=== PATIENT | female | born 1985 | race Native Hawaiian/Other Pacific Islander ===

== ENCOUNTER 2017-07-28 13:19 | Emergency (ER) | payer OTHER ==
[2017-07-28] MEDS ORDERED: ACETAMINOPHEN TAB 500 MG TAB PO STA (14:37)
[2017-07-28] MEDS ORDERED: IBUPROFEN 800 MG TAB PO STA (14:37)
--- NOTE | 2017-07-28 14:42 | ED ---
General Adult HPI - General Chief complaint: Abdominal Pain Stated complaint: Urogenital Time Seen by Provider: 07/28/17 14:17 Source: patient Mode of arrival: ambulatory Limitations: no limitations - History of Present Illness Initial comments: patient is a 32-year-old female who presents with a chief complaint of back/ flank pain that has been going on for about a month but has been acutely worse since yesterday. The patient is concerned that she has a urinary tract infection or an infection in her kidney. The patient states that she look up her symptoms are [employer]. Patient characterizes her pain as a deep ache. Aggravating factors include bending, standing up straight, and twisting. The patient also admits to having a cough which exacerbates her pain. Alleviating factors are rest. Timing is been constant. Patient is a half-pack a day smoker , she does not drink or use recreational drugs. She does not have any medical ALLERGIES. - Related Data Previous Rx's Medication Instructions Recorded Methocarbamol [Robaxin-750] 750 mg PO TID BETWEEN MEALS PRN 07/28/17 #12 tablet Sulfamethox-Tmp 800-160Mg [Bactrim 1 tab PO Q12HR #14 tab 07/28/17 DS 800-160 mg] Allergies Allergy/AdvReac Type Severity Reaction Status Date / Time No Known Allergies Allergy Verified 07/28/17 14:19 Review of Systems ROS Statement: Those systems with pertinent positive or pertinent negative responses have been documented in the HPI. ROS Other: All systems not noted in ROS Statement are negative. Respiratory: Reports: cough Genitourinary: Reports: frequency Past Medical History Past Medical History: No Reported History Additional Past Medical History / Comment(s): Obstetric history: This is her first and she has been getting care with Dr Swain. A+, abs neg, Rub nonimmune, RPR NR, Hep B neg, HIV NR, toxo neg. normal 1hr GTT and anatomy US. GBS unknown because she did not come to her last visit. History of Any Multi-Drug Resistant Organisms: None Reported Past Surgical History: Ear Surgery Additional Past Surgical History / Comment(s): myringotomy with tubes Past Anesthesia/Blood Transfusion Reactions: No Reported Reaction Past Psychological History: No Psychological Hx Reported Smoking Status: Current every day smoker Past Alcohol Use History: None Reported Past Drug Use History: None Reported General Exam Limitations: no limitations General appearance: alert, in no apparent distress Head exam: Present: atraumatic, normocephalic Eye exam: Present: normal appearance ENT exam: Present: normal exam Respiratory exam: Present: normal lung sounds bilaterally. Absent: respiratory distress, wheezes Cardiovascular Exam: Present: regular rate, normal rhythm GI/Abdominal exam: Present: soft. Absent: distended, tenderness Rectal exam: Present: deferred Extremities exam: Present: normal inspection Back exam: Present: tenderness (patient has tenderness on the right lower side of her back. There is some pain extending to the lateral side of her mid section), muscle spasm. Absent: full ROM (patient has decreased range of motion in her lumbar spine. The patient has difficulty standing straight and bending over.) Neurological exam: Present: alert, oriented X3 Psychiatric exam: Present: normal affect, normal mood Skin exam: Present: warm, dry, intact Course Vital Signs 07/28/17 14:05 Temperature 99.4 F Pulse Rate 72 Respiratory 20 Rate Blood Pressure 109/63 O2 Sat by Pulse 99 Oximetry Medical Decision Making - Medical Decision Making patient presents with a chief complaint of lower back pain. On initial evaluation, vital signs are stable, the patient is in no acute distress. History and physical examination most consistent with a lower back strain however we'll send urinalysis to rule out urinary tract infection versus pyelonephritis. We will send a urine hCG to rule out . 3:45 PM Lab evaluation this patient shows evidence of a urinary tract infection. The patient will be treated with Bactrim, urine culture was sent. Patient will also be given a prescription for Robaxin as I do believe there is a component of muscular skeletal pain at the patient's presentation today. I discussed the results and care plan with the patient, she is agreeable. She is instructed to follow up with her primary care doctor or return to the emergency department if her symptoms worsen or change. - Lab Data Lab Results 07/28/17 07/28/17 Range/Units 15:00 15:00 Urine Color Yellow Urine Appearance Cloudy H (Clear) Urine pH 6.5 (5.0-8.0) Ur Specific [place] 1.012 (1.001-1.035) Urine Protein 1+ H (Negative) Urine Glucose (UA) Negative (Negative) Urine Ketones 1+ H (Negative) Urine Blood Moderate H (Negative) Urine Nitrite Positive H (Negative) Urine Bilirubin Negative (Negative) Urine Urobilinogen <2.0 (<2.0) mg/dL Ur Leukocyte Esterase Large H (Negative) Urine RBC 5 (0-5) /hpf Urine WBC 110 H (0-5) /hpf Ur Squamous Epith Cells 7 H (0-4) /hpf Urine Bacteria Many H (None) /hpf Urine Mucus Many H (None) /hpf Urine HCG, Qual Not Detected (Not Detectd) Disposition Clinical Impression: UTI (urinary tract infection), Lower back pain Disposition: HOME SELF-CARE Condition: Good Instructions: Urinary Tract Infection in Women (ED) Prescriptions: Methocarbamol [Robaxin-750] 750 mg PO TID BETWEEN MEALS PRN #12 tablet PRN Reason: muscle spasm Sulfamethox-Tmp 800-160Mg [Bactrim DS 800-160 mg] 1 tab PO Q12HR #14 tab Referrals: None,Stated [Primary Care Provider] - 1-2 days Ambar Allison MD [STAFF PHYSICIAN] - 1-2 days
[2017-07-28 15:11] LABS: Appearance,Urine Cloudy (Clear); Bacteria,Urine Many /hpf; Bilirubin,Urine Negative (Negative); Blood,Urine Moderate (Negative); Color,Urine Yellow; Glucose,Urine (UA) Negative (Negative); Ketones,Urine 1+ (Negative); Leukocyte Esterase,Urine Large (Negative); Mucus,Urine Many /hpf; Nitrite,Urine Positive (Negative); PH, Urine 6.5 (5.0-8.0); Protein,Urine 1+ (Negative); RBC,Urine 5 /hpf (0-5); Specific Gravity,Urine 1.012 (1.001-1.035); Squamous Epithelial Cell,Urine 7 /hpf (0-4); Urobilinogen,Urine <2.0 mg/dL (<2.0); WBC,Urine 110 /hpf (0-5)
[2017-07-28 15:55] VITALS: BP 118/73; PULSE 61; RESP 16; TEMP 98
== END 2017-07-28 15:54 | disposition home or self-care (01) ==
LOC: EC 13:19
DX: N39.0 Urinary tract infection, site not specified (principal); M54.5 Low back pain; R05 Cough; F17.200 Nicotine dependence, unspecified, uncomplicated
CPT/HCPCS: 81001; 81025; 99284

== ENCOUNTER 2021-04-18 10:09 | Inpatient (IN) | payer OTHER ==
[2021-04-18] MEDS ORDERED: SODIUM CHLORIDE 0.9% 500 ML 500 ML IV STA (10:25)
[2021-04-18] MEDS ORDERED: ALBUTEROL HFA INHALER INHALATION STA (10:25)
[2021-04-18] MEDS ORDERED: ACETAMINOPHEN TAB 500 MG TAB PO STA (10:26)
[2021-04-18] MEDS ORDERED: SODIUM CHLORIDE 0.9% 500 ML 500 ML IV ONE (10:26)
--- NOTE | 2021-04-18 10:31 | ED ---
General Adult HPI - General Chief complaint: Shortness of Breath Stated complaint: 7 1/2mos preg, SOB Time Seen by Provider: 04/18/21 10:17 Source: patient, RN notes reviewed, old records reviewed Mode of arrival: ambulatory Limitations: physical limitation - History of Present Illness Initial comments: 35-year-old female G 2P1 approximate 30 weeks presenting with chief complaint of cough, congestion, dyspnea. Her cough is productive of yellow sputum. She's had chills. No myalgias. No abdominal pain. No vaginal bleeding or discharge. She has been sick for the past 5 days. No known contacts with coronal virus. She has not been vaccinated. She's had nasal congestion as well. She also notes that over the past 24-48 hours she's had decreased movements. Patient is a current smoker. No history of asthma. - Related Data Home Medications Medication Instructions Recorded Confirmed guaiFENesin SYRUP 100MG/5ML 200 mg PO Q6H PRN 04/18/21 04/18/21 [Robitussin] Allergies Allergy/AdvReac Type Severity Reaction Status Date / Time No Known Allergies Allergy Verified 04/18/21 11:12 Review of Systems ROS Statement: Those systems with pertinent positive or pertinent negative responses have been documented in the HPI. ROS Other: All systems not noted in ROS Statement are negative. Past Medical History Past Medical History: No Reported History Additional Past Medical History / Comment(s): Obstetric history: This is her first and she has been getting care with Dr Swain. A+, abs neg, Rub nonimmune, RPR NR, Hep B neg, HIV NR, toxo neg. normal 1hr GTT and anatomy US. GBS unknown because she did not come to her last visit. History of Any Multi-Drug Resistant Organisms: None Reported Past Surgical History: Ear Surgery Additional Past Surgical History / Comment(s): myringotomy with tubes Past Anesthesia/Blood Transfusion Reactions: No Reported Reaction Past Psychological History: No Psychological Hx Reported Smoking Status: Current every day smoker Past Alcohol Use History: None Reported Past Drug Use History: None Reported General Exam Limitations: physical limitation General appearance: alert, anxious Head exam: Present: atraumatic, normocephalic Eye exam: Present: normal appearance, PERRL ENT exam: Present: mucous membranes dry Neck exam: Present: normal inspection. Absent: tenderness, meningismus Respiratory exam: Present: respiratory distress, wheezes, rhonchi Cardiovascular Exam: Present: normal rhythm, tachycardia GI/Abdominal exam: Present: soft, other (Gravid). Absent: distended, tenderness, guarding, rebound Extremities exam: Present: normal inspection, normal capillary refill. Absent: pedal edema, calf tenderness Neurological exam: Present: alert, oriented X3 Psychiatric exam: Present: anxious Skin exam: Present: warm, dry, intact. Absent: cyanosis, diaphoretic Course Vital Signs 04/18/21 04/18/21 10:12 12:05 Temperature 98.5 F Pulse Rate 127 H 110 H Respiratory 26 H 24 Rate Blood Pressure 138/82 128/98 O2 Sat by Pulse 96 97 Oximetry EKG Findings - EKG Comments: EKG Findings:: Sinus tachycardia, rate of 113, ME interval 128, QRS duration 78, QTC [address] segment elevation. Medical Decision Making - Medical Decision Making 35-year-old female currently 30 weeks presenting with cough, URI symptoms. Cough is productive of yellow sputum. She is wheezing bilaterally. She has an elevated white blood cell count suggestive of bacterial infection. Chest x-ray showing COPD, bronchitis type pattern without large focal pneumonia. Her coronavirus testing is negative. She is started on IV antibiotics, st eroids, albuterol, Atrovent. She will be admitted to internal medicine with obstetric on consult. She did have normal heart tones while in the emergency department. I discussed case with Dr. Crews who will admit. - Lab Data Result diagrams: 04/18/21 10:58 04/18/21 10:58 Lab Results 04/18/21 04/18/21 04/18/21 Range/Units 10:58 10:58 10:58 WBC 23.9 H (3.8-10.6) k/uL RBC 3.86 (3.80-5.40) m/uL Hgb 12.9 (11.4-16.0) gm/dL Hct 38.3 (34.0-46.0) % MCV 99.2 (80.0-100.0) fL MCH 33.4 (25.0-35.0) pg MCHC 33.7 (31.0-37.0) g/dL RDW 13.8 (11.5-15.5) % Plt Count 302 (150-450) k/uL MPV 10.3 Neutrophils % 88 % Lymphocytes % 6 % Monocytes % 4 % Eosinophils % 0 % Basophils % 0 % Neutrophils # 21.0 H (1.3-7.7) k/uL Lymphocytes # 1.4 (1.0-4.8) k/uL Monocytes # 0.9 (0-1.0) k/uL Eosinophils # 0.1 (0-0.7) k/uL Basophils # 0.1 (0-0.2) k/uL PT 9.4 (9.0-12.0) sec INR 0.8 (<1.2) APTT 25.0 (22.0-30.0) sec Sodium 132 L (137-145) mmol/L Potassium 4.5 (3.5-5.1) mmol/L Chloride 107 (98-107) mmol/L Carbon Dioxide 10 L (22-30) mmol/L Anion Gap 15 mmol/L BUN 5 L (7-17) mg/dL Creatinine 0.56 (0.52-1.04) mg/dL Est GFR (CKD-EPI)AfAm >90 (>60 ml/min/1.73 sqM) Est GFR (CKD-EPI)NonAf >90 (>60 ml/min/1.73 sqM) Glucose 95 (74-99) mg/dL Plasma Lactic Acid Rehan (0.7-2.0) mmol/L Calcium 9.8 (8.4-10.2) mg/dL Magnesium 1.7 (1.6-2.3) mg/dL Total Bilirubin 1.0 (0.2-1.3) mg/dL AST 42 H (14-36) U/L ALT 20 (4-34) U/L Alkaline Phosphatase 169 H (38-126) U/L Total Protein 7.5 (6.3-8.2) g/dL Albumin 4.1 (3.5-5.0) g/dL Coronavirus (PCR) (Not Detectd) 04/18/21 04/18/21 Range/Units 10:58 11:13 WBC (3.8-10.6) k/uL RBC (3.80-5.40) m/uL Hgb (11.4-16.0) gm/dL Hct (34.0-46.0) % MCV (80.0-100.0) fL MCH (25.0-35.0) pg MCHC (31.0-37.0) g/dL RDW (11.5-15.5) % Plt Count (150-450) k/uL MPV Neutrophils % % Lymphocytes % % Monocytes % % Eosinophils % % Basophils % % Neutrophils # (1.3-7.7) k/uL Lymphocytes # (1.0-4.8) k/uL Monocytes # (0-1.0) k/uL Eosinophils # (0-0.7) k/uL Basophils # (0-0.2) k/uL PT (9.0-12.0) sec INR (<1.2) APTT (22.0-30.0) sec Sodium (137-145) mmol/L Potassium (3.5-5.1) mmol/L Chloride (98-107) mmol/L Carbon Dioxide (22-30) mmol/L Anion Gap mmol/L BUN (7-17) mg/dL Creatinine (0.52-1.04) mg/dL Est GFR (CKD-EPI)AfAm (>60 ml/min/1.73 sqM) Est GFR (CKD-EPI)NonAf (>60 ml/min/1.73 sqM) Glucose (74-99) mg/dL Plasma Lactic Acid Rehan 0.9 (0.7-2.0) mmol/L Calcium (8.4-10.2) mg/dL Magnesium (1.6-2.3) mg/dL Total Bilirubin (0.2-1.3) mg/dL AST (14-36) U/L ALT (4-34) U/L Alkaline Phosphatase (38-126) U/L Total Protein (6.3-8.2) g/dL Albumin (3.5-5.0) g/dL Coronavirus (PCR) Not Detected (Not Detectd) Disposition Clinical Impression: Community acquired pneumonia, Reactive airway disease Disposition: ADMITTED IP TO THIS [facility] Condition: Stable Is patient prescribed a controlled substance at d/c from ED?: No Referrals: None,Stated [Primary Care Provider] - 1-2 days Decision to Admit Reason: Admit from EC Decision Date: 04/18/21 Decision Time: 13:07
[2021-04-18 11:27] LABS: Basophils # (A) 0.1 k/uL (0-0.2); Basophils % (A) 0 %; Eosinophils # (A) 0.1 k/uL (0-0.7); Eosinophils % (A) 0 %; HCT 38.3 % (34.0-46.0); HGB 12.9 gm/dL (11.4-16.0); Lymphocytes # (A) 1.4 k/uL (1.0-4.8); Lymphocytes % (A) 6 %; MCH 33.4 pg (25.0-35.0); MCHC 33.7 g/dL (31.0-37.0); MCV 99.2 fL (80.0-100.0); Mean Platelet Volume 10.3; Monocytes # (A) 0.9 k/uL (0-1.0); Monocytes % (A) 4 %; Neutrophils % (A) 88 %; Platelet Count 302 k/uL (150-450); RBC 3.86 m/uL (3.80-5.40); RDW 13.8 % (11.5-15.5); WBC 23.9 k/uL (3.8-10.6)
--- NOTE | 2021-04-18 11:38 | XR ---
EXAMINATION TYPE: XR chest 2V DATE OF EXAM: 04/18/2021 COMPARISON: NONE TECHNIQUE: PA and lateral views submitted. HISTORY: Shortness of breath FINDINGS: The lungs are clear and there is no pneumothorax, pleural effusion, or focal pneumonia. Hyperinflat ion. Coarsened interstitium. Could not exclude a 3 to 4 mm lateral right upper lobe pulmonary nodule. Pleural thickening chronic appearing rib deformities along the left lateral upper rib cage. IMPRESSION: 1. COPD. Underlying chronic interstitial lung disease in the differential diagnosis. Could not exclud e an interstitial pneumonitis correlate clinically..
[2021-04-18 11:47] LABS: ALT 20 U/L (4-34); AST 42 U/L (14-36); African American GFR (CKD) >90 (>60 ml/min/1.73 sqM); Albumin 4.1 g/dL (3.5-5.0); Alkaline Phosphatase 169 U/L (38-126); Anion Gap 15 mmol/L; Blood Urea Nitrogen 5 mg/dL (7-17); Calcium 9.8 mg/dL (8.4-10.2); Carbon Dioxide 10 mmol/L (22-30); Chloride 107 mmol/L (98-107); Glucose 95 mg/dL (74-99); Magnesium 1.7 mg/dL (1.6-2.3); Non-African American GFR(CKD) >90 (>60 ml/min/1.73 sqM); Potassium 4.5 mmol/L (3.5-5.1); Sodium 132 mmol/L (137-145); Total Protein 7.5 g/dL (6.3-8.2)
[2021-04-18 12:00] LABS: INR 0.8 (<1.2); Prothrombin Time 9.4 sec (9.0-12.0)
[2021-04-18] MEDS ORDERED: cefTRIAXone IN SWFI 1,000 MG/10 ML SYRINGE IVP STA (12:25)
[2021-04-18] MEDS ORDERED: ALBUTEROL NEBULIZED 2.5 MG/3 ML INHALATION STA (12:34)
[2021-04-18] MEDS ORDERED: IPRATROPIUM-ALBUTEROL 3 ML NEB INHALATION STA (12:34)
[2021-04-18] MEDS ORDERED: predniSONE 50 MG TAB PO STA (12:35)
[2021-04-18] MEDS: SODIUM CHLORIDE 0.9% 1,000 ML IV SCH (12:59)
[2021-04-18] MEDS ORDERED: IPRATROPIUM-ALBUTEROL 3 ML NEB INHALATION PRN (13:05)
[2021-04-18 14:10] LABS: Appearance,Urine Cloudy (Clear); Bacteria,Urine Rare /hpf; Bilirubin,Urine 1+ (Negative); Blood,Urine Moderate (Negative); Color,Urine Yellow; Glucose,Urine (UA) Negative (Negative); Granular Casts,Urine 4 /lpf (0); Ketones,Urine 4+ (Negative); Leukocyte Esterase,Urine Trace (Negative); Mucus,Urine Rare /hpf; Nitrite,Urine Negative (Negative); PH, Urine 5.5 (5.0-8.0); Protein,Urine 2+ (Negative); RBC,Urine <1 /hpf (0-5); Specific Gravity,Urine 1.022 (1.001-1.035); Squamous Epithelial Cell,Urine 9 /hpf (0-4); WBC,Urine 6 /hpf (0-5)
[2021-04-18] MEDS: ACETAMINOPHEN TAB 325 MG TAB PO PRN (18:47)
--- NOTE | 2021-04-18 18:59 | P.HPIM ---
History of Present Illness H&P Date: 04/18/21 Chief Complaint: Shortness of breath Patient is a 35-year-old female without a past medical history except currently everyday smoker presents to ER with the complaints of cough congestion and shortness of breath for the past 4-5 days. Patient does have cough with light yellowish sputum production. Denied any fever at home. No complaints of nausea vomiting or abdominal pain or diarrhea. Patient was tachycardic and tachypneic on admission. No complaints of dysuria or hematuria. Denied any recent illnesses. No sick contacts. Patient is not vaccinated. Patient also noted decreased movements during last 24-48 hours. Denied any prior history of asthma. Chest x-ray showed COPD. Underlying chronic interstitial lung disease in the differential diagnosis. Could not exclude interstitial pneumonitis. EKG showed sinus tachycardia WBC 23.9 hemoglobin 12.9 platelets 302, neutrophils 21.0 Sodium 132 potassium 4.5 chloride 107 bicarb is 10 and 15 BUN 5 and creatinine 0.56 Urinalysis showed cloudy with 2+ protein, 4+ he does and moderate blood 1+ bilirubin and trace leukocyte esterase, RBC less than 1 and WBC 6 , squamous epithelial cells 9 Review of Systems Constitutional: Patient denies any fever . Subjective chills . Generalized weakness and malaise. Abdomen: Patient denied nausea vomiting and diarrhea and abdominal pain. Cardiovascular: Patient denies any chest pain or palpitations. No leg swelling . Respiratory: Patient does have cough with light yellowish sputum production and shortness of breath Neurologic: Patient denied any numbness or tingling headache. Musculoskeletal: Patient denies any complaints of joint swelling or deformity. Skin: Negative Psychiatric: Negative Endocrine: No heat or cold intolerance. No recent weight gain. Genitourinary: No dysuria or hematuria. All other 14 point ROS negative except the above Past Medical History Past Medical History: No Reported History Additional Past Medical History / Comment(s): Obstetric history: This is her first and she has been getting care with Dr Swain. A+, abs neg, Rub nonimmune, RPR NR, Hep B neg, HIV NR, toxo neg. normal 1hr GTT and anatomy US. GBS unknown because she did not come to her last visit. History of Any Multi-Drug Resistant Organisms: None Reported Past Surgical History: Ear Surgery Additional Past Surgical History / Comment(s): myringotomy with tubes Past Anesthesia/Blood Transfusion Reactions: No Reported Reaction Past Psychological History: No Psychological Hx Reported Smoking Status: Current every day smoker Past Alcohol Use History: None Reported Past Drug Use History: None Reported Medications and Allergies Home Medications Medication Instructions Recorded Confirmed Type guaiFENesin SYRUP 100MG/5ML 200 mg PO Q6H PRN 04/18/21 04/18/21 History [Robitussin] Allergies Allergy/AdvReac Type Severity Reaction Status Date / Time No Known Allergies Allergy Verified 04/18/21 11:12 Physical Exam Vitals: Vital Signs Temp Pulse Resp BP Pulse Ox 04/18/21 18:34 97.1 F L 95 16 139/90 98 04/18/21 13:33 104 H 04/18/21 13:02 103 H 04/18/21 12:05 110 H 24 128/98 97 04/18/21 10:12 98.5 F 127 H 26 H 138/82 96 Intake and Output 04/18/21 04/18/21 04/18/21 06:59 14:59 22:59 Other: Weight 97.069 kg PHYSICAL EXAMINATION: Patient is lying in the bed comfortably, no acute distress, awake alert and oriented.. HEENT: Normocephalic. Neck is supple. Pupils reactive. Nostrils clear. Oral cavity is moist. Neck reveals no JVD, carotid bruits, or thyromegaly. CHEST EXAMINATION: Trachea is central. Symmetrical expansion. Bilateral expiratory wheeze and scattered rhonchi. CARDIAC: Normal S1, S2 with no gallops. No murmurs ABDOMEN: Soft. Bowel sounds normal. No organomegaly. No abdominal bruits. Extremities: reveal no edema. No clubbing or cyanosis Neurologically awake, alert, oriented x3 with well-coordinated movements. No focal deficits noted Skin: No rash or skin lesions. Psychiatric: Coperative. Nonsuicidal Musculoskeletal: No joint swelling or deformity. Normal range of motion. Results CBC & Chem 7: 04/19/21 03:18 04/19/21 03:18 Labs: Abnormal Lab Results - Last 24 Hours (Table) 04/18/21 04/18/21 04/18/21 Range/Units 10:58 10:58 13:17 WBC 23.9 H (3.8-10.6) k/uL Neutrophils # 21.0 H (1.3-7.7) k/uL Sodium 132 L (137-145) mmol/L Carbon Dioxide 10 L (22-30) mmol/L BUN 5 L (7-17) mg/dL AST 42 H (14-36) U/L Alkaline Phosphatase 169 H (38-126) U/L Urine Appearance Cloudy H (Clear) Urine Protein 2+ H (Negative) Urine Ketones 4+ H (Negative) Urine Blood Moderate H (Negative) Urine Bilirubin 1+ H (Negative) Ur Leukocyte Esterase Trace H (Negative) Urine WBC 6 H (0-5) /hpf Ur Squamous Epith Cells 9 H (0-4) /hpf Urine Bacteria Rare H (None) /hpf Urine Mucus Rare H (None) /hpf Thrombosis Risk Factor Assmnt - DVT/VTE Prophylaxis DVT/VTE Prophylaxis: Mechanical Prophylaxis ordered Assessment and Plan Assessment: Shortness of breath secondary to reactive airway disease versus acute COPD exacerbation Acute tracheobronchitis with interstitial pneumonitis/pneumonia. Patient does have leukocytosis with WBC 23.9 and tachycardic and tachypneic on admission Sepsis secondary to above Ongoing nicotine addiction Hypovolemic hyponatremia Metabolic acidosis 30 week intrauterine DVT prophylaxis with early ambulation Plan: Patient will be continued on DuoNeb's and prednisone 40 mg daily. Oxygen supplementation as needed. Continue with IV hydration with normal saline and antibiotics in the form of ceftriaxone. Pro-calcitonin level was ordered. Monitor the CBC and BMP tomorrow. Follow-up sputum and urine culture reports. Continue to follow closely. [facility] service was consulted. Time with Patient: Greater than 30
[2021-04-18] MEDS: IPRATROPIUM-ALBUTEROL 3 ML NEB INHALATION SCH ×2 (19:28)
[2021-04-19] MEDS: ACETAMINOPHEN TAB 325 MG TAB PO PRN ×2 (00:39→11:44)
[2021-04-19] MEDS: SODIUM CHLORIDE 0.9% 1,000 ML IV SCH ×2 (02:28→16:47)
[2021-04-19 07:27] LABS: African American GFR (CKD) >90 (>60 ml/min/1.73 sqM); Anion Gap 13 mmol/L; Blood Urea Nitrogen 6 mg/dL (7-17); Calcium 9.8 mg/dL (8.4-10.2); Carbon Dioxide 11 mmol/L (22-30); Chloride 109 mmol/L (98-107); Glucose 90 mg/dL (74-99); Non-African American GFR(CKD) >90 (>60 ml/min/1.73 sqM); Potassium 4.9 mmol/L (3.5-5.1); Sodium 133 mmol/L (137-145)
[2021-04-19 07:45] LABS: Basophils # (A) 0.1 k/uL (0-0.2); Basophils % (A) 1 %; Eosinophils % (A) 0 %; HCT 36.6 % (34.0-46.0); HGB 12.3 gm/dL (11.4-16.0); Lymphocytes # (A) 1.4 k/uL (1.0-4.8); Lymphocytes % (A) 9 %; MCH 34.4 pg (25.0-35.0); MCHC 33.7 g/dL (31.0-37.0); Macrocytosis Slight; Mean Platelet Volume 11.4; Monocytes # (A) 0.6 k/uL (0-1.0); Monocytes % (A) 4 %; Neutrophils # (A) 13.4 k/uL (1.3-7.7); Neutrophils % (A) 84 %; Platelet Count 297 k/uL (150-450); RBC 3.58 m/uL (3.80-5.40); RDW 14.3 % (11.5-15.5); WBC 15.9 k/uL (3.8-10.6)
[2021-04-19] MEDS: IPRATROPIUM-ALBUTEROL 3 ML NEB INHALATION SCH ×4 (08:25→20:40)
[2021-04-19] MEDS: predniSONE 20 MG TAB PO SCH (10:01)
--- NOTE | 2021-04-19 10:56 | P.OBCN ---
History of Present Illness Consult date: 04/19/21 Requesting physician: Caty Crews Reason for consult: other ( with pneumonia) Chief complaint: Pneumonia History of present illness: Patient is a 35-year-old 2 para 1 at 30 weeks 6 days gestation with pneumonia. She is seen and evaluated in emergency room as a cold patient. She has been therefore more than 24 hours as far as I can tell. I was not notified of any consultation or notify that she was in the emergency room at all. There is been no Fording of the consult and I was not perfect served any messages. She complained of decreased movement yesterday no treatment or diagnostic evaluation was done as I was not notified of her presence in the emergency room. heart tones yesterday were 133. In speaking with her this morning. She relates that she is feeling the baby move better this morning. heart tones were 142 and I have arranged for her to be admitted to labor and delivery as she is almost 31 weeks gestation. She is receiving steroids orally and IV antibiotics which seemed to be helping. She did fail her 1 hour Glucola screen but did not do her 3 her Glucola screen. It was only 143 however. She has seen maternal medicine as she is also advanced term age. They are evaluations have been unremarkable. It is unclear to me why I was not notified of her admission. I have started a process investigation to try and better define why it was noted notification from the emergency room no were the labor and delivery nurse that plan and did heart tones yesterday. She denies any contractions signs or symptoms of labor. She does have a remote history of premature rupture membranes with her last but delivered some were shortly after 37 weeks. Please see medicines no on physical for physical exam findings. We'll do more thorough physical exam once she is in labor and delivery. She does have a productive cough but otherwise is in good spirits. COVID testing is negative. Assessment intrauterine at 30 and 6. Advanced maternal age. Pneumonia. plan your medical management with planned heart monitoring daily. At only 31 weeks gestation we may not end up getting truly reactive nonstress tests as it only present in about 80% of babies at 32 weeks, as long as they're reassuring with 10 x 10 accelerations will likely monitor only. If there is any question as to baby's well-being, we'll order biophysical profile. Past Medical History Past Medical History: No Reported History Additional Past Medical History / Comment(s): Obstetric history: This is her first and she has been getting care with Dr Swain. A+, abs neg, Rub nonimmune, RPR NR, Hep B neg, HIV NR, toxo neg. normal 1hr GTT and anatomy US. GBS unknown because she did not come to her last visit. History of Any Multi-Drug Resistant Organisms: None Reported Past Surgical History: Ear Surgery Additional Past Surgical History / Comment(s): myringotomy with tubes Past Anesthesia/Blood Transfusion Reactions: No Reported Reaction Past Psychological History: No Psychological Hx Reported Smoking Status: Current every day smoker Past Alcohol Use History: None Reported Past Drug Use History: None Reported Medications and Allergies Home Medications Medication Instructions Recorded Confirmed Type guaiFENesin SYRUP 100MG/5ML 200 mg PO Q6H PRN 04/18/21 04/18/21 History [Robitussin] Allergies Allergy/AdvReac Type Severity Reaction Status Date / Time No Known Allergies Allergy Verified 04/18/21 11:12 Exam Osteopathic Statement: *. No significant issues noted on an osteopathic structural exam other than those noted in the History and Physical/Consult. Vital Signs Temp Pulse Resp BP Pulse Ox 04/19/21 08:36 84 18 04/19/21 08:25 87 18 97 04/19/21 07:58 97.0 F L 99 20 130/96 98 04/19/21 07:31 79 18 121/83 99 04/19/21 00:48 18 04/19/21 00:27 98.0 F 89 18 139/92 98 04/18/21 19:40 105 H 04/18/21 19:30 103 H 04/18/21 18:34 97.1 F L 95 16 139/90 98 04/18/21 13:33 104 H 04/18/21 13:02 103 H 04/18/21 12:05 110 H 24 128/98 97 Results Result Diagrams: 04/19/21 03:18 04/19/21 03:18 Abnormal Lab Results - Last 24 Hours (Table) 04/18/21 04/18/21 04/18/21 Range/Units 10:58 10:58 13:17 WBC 23.9 H (3.8-10.6) k/uL RBC (3.80-5.40) m/uL MCV (80.0-100.0) fL Neutrophils # 21.0 H (1.3-7.7) k/uL Sodium 132 L (137-145) mmol/L Chloride (98-107) mmol/L Carbon Dioxide 10 L (22-30) mmol/L BUN 5 L (7-17) mg/dL AST 42 H (14-36) U/L Alkaline Phosphatase 169 H (38-126) U/L Urine Appearance Cloudy H (Clear) Urine Protein 2+ H (Negative) Urine Ketones 4+ H (Negative) Urine Blood Moderate H (Negative) Urine Bilirubin 1+ H (Negative) Ur Leukocyte Esterase Trace H (Negative) Urine WBC 6 H (0-5) /hpf Ur Squamous Epith Cells 9 H (0-4) /hpf Urine Bacteria Rare H (None) /hpf Urine Mucus Rare H (None) /hpf 04/19/21 04/19/21 Range/Units 03:18 03:18 WBC 15.9 H (3.8-10.6) k/uL RBC 3.58 L (3.80-5.40) m/uL MCV 102.0 H (80.0-100.0) fL Neutrophils # 13.4 H (1.3-7.7) k/uL Sodium 133 L (137-145) mmol/L Chloride 109 H (98-107) mmol/L Carbon Dioxide 11 L (22-30) mmol/L BUN 6 L (7-17) mg/dL AST (14-36) U/L Alkaline Phosphatase (38-126) U/L Urine Appearance (Clear) Urine Protein (Negative) Urine Ketones (Negative) Urine Blood (Negative) Urine Bilirubin (Negative) Ur Leukocyte Esterase (Negative) Urine WBC (0-5) /hpf Ur Squamous Epith Cells (0-4) /hpf Urine Bacteria (None) /hpf Urine Mucus (None) /hpf
[2021-04-19 11:49] LABS: Glucose,Whole Blood 113 mg/dL (75-99)
[2021-04-19 17:23] LABS: Glucose,Whole Blood 111 mg/dL (75-99)
[2021-04-19] MEDS ORDERED: CALCIUM CARBONATE 500 MG CHEWABLE PO PRN (19:24)
[2021-04-19 21:01] LABS: Glucose,Whole Blood 105 mg/dL (75-99)
--- NOTE | 2021-04-19 21:20 | P.PN ---
Subjective Progress Note Date: 04/19/21 Patient is a 35-year-old female without a past medical history except currently everyday smoker presents to ER with the complaints of cough congestion and shortness of breath for the past 4-5 days. Patient does have cough with light yellowish sputum production. Denied any fever at home. No complaints of nausea vomiting or abdominal pain or diarrhea. Patient was tachycardic and tachypneic on admission. No complaints of dysuria or hematuria. Denied any recent illnesses. No sick contacts. Patient is not vaccinated. Patient also noted decreased movements during last 24-48 hours. Denied any prior history of asthma. Chest x-ray showed COPD. Underlying chronic interstitial lung disease in the differential diagnosis. Could not exclude interstitial pneumonitis. EKG showed sinus tachycardia WBC 23.9 hemoglobin 12.9 platelets 302, neutrophils 21.0 Sodium 132 potassium 4.5 chloride 107 bicarb is 10 and 15 BUN 5 and creatinine 0.56 Urinalysis showed cloudy with 2+ protein, 4+ he does and moderate blood 1+ bilirubin and trace leukocyte esterase, RBC less than 1 and WBC 6 , squamous epithelial cells 9 04/19/2021 Patient is currently lying in the bed awake alert and oriented x3. Breathing status is better today. patient is still having cough with sputum production. Patient has been afebrile. No headache or dizziness. No complaints of chest pain. Patient still having mild expiratory wheeze and minimal right basilar crackles. Laboratory data showed WBC trending down to 15.9 hemoglobin 12.3 and platelets 297 Sodium 133 potassium 4.9 chloride 109 bicarb is 11 anion gap 13 and BUN 16 creatinine 0.62 Tachycardia is improving. Urine culture is pending. Patient is being current on antibiotic in the home ceftriaxone. Current medications reviewed. Objective - Vital Signs Vital signs: Vital Signs Temp 97.0 F L 04/19/21 07:58 Pulse 121 H 04/19/21 11:16 Resp 18 04/19/21 11:16 BP 132/92 04/19/21 11:00 Pulse Ox 98 04/19/21 11:00 Intake & Output 04/18/21 04/19/21 04/19/21 18:59 06:59 18:59 Weight 97.069 kg - Exam PHYSICAL EXAMINATION: Patient is lying in the bed comfortably, no acute distress, awake alert and oriented.. HEENT: Normocephalic. Neck is supple. Pupils reactive. Nostrils clear. Oral cavity is moist. Neck reveals no JVD, carotid bruits, or thyromegaly. CHEST EXAMINATION: Trachea is central. Symmetrical expansion. Minimal expiratory wheeze and right basilar crackles. Nonlabored breathing.. CARDIAC: Normal S1, S2 with no gallops. No murmurs ABDOMEN: Soft. Bowel sounds normal. No organomegaly. No abdominal bruits. Extremities: reveal no edema. No clubbing or cyanosis Neurologically awake, alert, oriented x3 with well-coordinated movements. No focal deficits noted Skin: No rash or skin lesions. Psychiatric: Coperative. Nonsuicidal Musculoskeletal: No joint swelling or deformity. Normal range of motion. - Labs CBC & Chem 7: 04/19/21 03:18 04/19/21 03:18 Labs: Abnormal Lab Results - Last 24 Hours (Table) 04/18/21 04/18/21 04/18/21 Range/Units 10:58 10:58 13:17 WBC 23.9 H (3.8-10.6) k/uL RBC (3.80-5.40) m/uL MCV (80.0-100.0) fL Neutrophils # 21.0 H (1.3-7.7) k/uL Sodium 132 L (137-145) mmol/L Chloride (98-107) mmol/L Carbon Dioxide 10 L (22-30) mmol/L BUN 5 L (7-17) mg/dL AST 42 H (14-36) U/L Alkaline Phosphatase 169 H (38-126) U/L Urine Appearance Cloudy H (Clear) Urine Protein 2+ H (Negative) Urine Ketones 4+ H (Negative) Urine Blood Moderate H (Negative) Urine Bilirubin 1+ H (Negative) Ur Leukocyte Esterase Trace H (Negative) Urine WBC 6 H (0-5) /hpf Ur Squamous Epith Cells 9 H (0-4) /hpf Urine Bacteria Rare H (None) /hpf Urine Mucus Rare H (None) /hpf 04/19/21 04/19/21 Range/Units 03:18 03:18 WBC 15.9 H (3.8-10.6) k/uL RBC 3.58 L (3.80-5.40) m/uL MCV 102.0 H (80.0-100.0) fL Neutrophils # 13.4 H (1.3-7.7) k/uL Sodium 133 L (137-145) mmol/L Chloride 109 H (98-107) mmol/L Carbon Dioxide 11 L (22-30) mmol/L BUN 6 L (7-17) mg/dL AST (14-36) U/L Alkaline Phosphatase (38-126) U/L Urine Appearance (Clear) Urine Protein (Negative) Urine Ketones (Negative) Urine Blood (Negative) Urine Bilirubin (Negative) Ur Leukocyte Esterase (Negative) Urine WBC (0-5) /hpf Ur Squamous Epith Cells (0-4) /hpf Urine Bacteria (None) /hpf Urine Mucus (None) /hpf Assessment and Plan Assessment: Shortness of breath secondary to reactive airway disease versus acute COPD exacerbation Acute tracheobronchitis with interstitial pneumonitis/pneumonia. Patient does have leukocytosis with WBC 23.9 and tachycardic and tachypneic on admission Sepsis secondary to above Ongoing nicotine addiction Hypovolemic hyponatremia Metabolic acidosis 30 week intrauterine DVT prophylaxis with early ambulation Plan: Patient will be continued on DuoNeb's and prednisone 40 mg daily. Oxygen supplementation as needed. Continue with IV hydration with normal saline and antibiotics in the form of ceftriaxone. Pro-calcitonin level was ordered. Monitor the CBC and BMP tomorrow. Follow-up sputum and urine culture reports. Continue to follow closely. [facility] service is following.
--- NOTE | 2021-04-20 07:58 | P.PN ---
Progress Note - Text Progress Note Date: 04/20/21 Overall stable. From an obstetric standpoint we'll continue to intermittently monitor the baby. Her vital signs are stable she is afebrile. All questions are answered for her. Medicine is managing the pneumonia versus past medical and cut as versus COPD. Plan continue care from an obstetrical standpoint. At this time no obstetrical intervention
[2021-04-20 08:15] LABS: Glucose,Whole Blood 86 mg/dL (75-99)
[2021-04-20 08:27] VITALS: BP 123/68; RESP 20; TEMP 97.9
[2021-04-20] MEDS ORDERED: AMOXIC-POT CLAV 875-125MG 1 EACH TAB PO SCH (09:00)
[2021-04-20] MEDS: IPRATROPIUM-ALBUTEROL 3 ML NEB INHALATION SCH ×2 (09:07→13:54)
[2021-04-20] MEDS: predniSONE 20 MG TAB PO SCH (09:55)
[2021-04-20] MEDS: ACETAMINOPHEN TAB 325 MG TAB PO PRN (09:56)
[2021-04-20 12:39] LABS: African American GFR (CKD) >90 (>60 ml/min/1.73 sqM); Anion Gap 9 mmol/L; Blood Urea Nitrogen 9 mg/dL (7-17); Calcium 9.6 mg/dL (8.4-10.2); Carbon Dioxide 16 mmol/L (22-30); Chloride 109 mmol/L (98-107); Glucose 98 mg/dL (74-99); Non-African American GFR(CKD) >90 (>60 ml/min/1.73 sqM); Potassium 3.8 mmol/L (3.5-5.1); Sodium 134 mmol/L (137-145)
[2021-04-20 13:02] LABS: Basophils # (A) 0.1 k/uL (0-0.2); Basophils % (A) 1 %; Eosinophils % (A) 0 %; HCT 33.3 % (34.0-46.0); HGB 11.5 gm/dL (11.4-16.0); Lymphocytes # (A) 1.9 k/uL (1.0-4.8); Lymphocytes % (A) 12 %; MCH 33.9 pg (25.0-35.0); MCHC 34.7 g/dL (31.0-37.0); MCV 97.8 fL (80.0-100.0); Mean Platelet Volume 9.7; Monocytes # (A) 0.6 k/uL (0-1.0); Monocytes % (A) 4 %; Neutrophils # (A) 12.2 k/uL (1.3-7.7); Neutrophils % (A) 80 %; Platelet Count 283 k/uL (150-450); RDW 13.6 % (11.5-15.5); WBC 15.1 k/uL (3.8-10.6)
[2021-04-20 14:03] VITALS: PULSE 108
== END 2021-04-20 15:40 | disposition home or self-care (01) | DRG 831 ==
LOC: EC 10:09 → 1SOBS 12:44 → 6NMEDSUR 15:35 → OBSVTOIN 04-19 10:13 → 4NBN 04-19 11:04 → 4FBP 04-19 11:35
PROVIDERS: ADMIT Internal Medicine; ATTEND Internal Medicine
PROC: 4A0HX4Z Measurement of Products of Conception, Cardiac Electrical Activity, External Approach (ICD-10-PCS; principal; 2021-04-19)
DX: O98.813 Other maternal infectious and parasitic diseases complicating pregnancy, third trimester (principal); J18.9 Pneumonia, unspecified organism; J44.0 Chronic obstructive pulmonary disease with (acute) lower respiratory infection; J44.1 Chronic obstructive pulmonary disease with (acute) exacerbation; E87.1 Hypo-osmolality and hyponatremia; E87.2 Acidosis; O99.333 Smoking (tobacco) complicating pregnancy, third trimester; Z20.822 Contact with and (suspected) exposure to COVID-19; O99.513 Diseases of the respiratory system complicating pregnancy, third trimester; O99.283 Endocrine, nutritional and metabolic diseases complicating pregnancy, third trimester; E86.1 Hypovolemia; O09.523 Supervision of elderly multigravida, third trimester; O36.8130 Decreased fetal movements, third trimester, not applicable or unspecified; Z3A.31 31 weeks gestation of pregnancy
CPT/HCPCS: 36415; 71046; 80048; 80053; 81001; 83036; 83605; 83735; 84145; 85025; 85610; 85730; 87070; 87086; 87205; 87635; 93005; 94640; 96360; 96361; 99285

== ENCOUNTER 2021-06-07 18:49 | Inpatient (IN) | payer OTHER ==
[2021-06-07] MEDS ORDERED: METHYLERGONOVINE 0.2 MG/ML 1 ML AMP IM PRN (19:28)
[2021-06-07] MEDS ORDERED: LIDOCAINE 0.5% (PF) 5 MG/ML (50 ML SDV) SQ PRN (19:28)
[2021-06-07] MEDS ORDERED: OXYTOCIN 10 UNIT/ML 1 ML VIAL IM PRN (19:28)
[2021-06-07] MEDS ORDERED: CARBOPROST TROMETHAMINE 250 MCG/ML 1 ML AMP IM PRN (19:28)
[2021-06-07] MEDS ORDERED: TERBUTALINE 1 MG/ML VIAL SQ PRN (19:28)
[2021-06-07] MEDS ORDERED: LACTATED RINGERS 1,000 ML IV SCH (19:30)
[2021-06-07] MEDS ORDERED: OXYTOCIN 30 UNITS/500 ML NS 30 UNIT in SALINE 1 500ML.BAG IV SCH ×2 (20:00→23:00)
[2021-06-07 20:04] LABS: Basophils # (A) 0.1 k/uL (0-0.2); Basophils % (A) 1 %; Eosinophils # (A) 0.2 k/uL (0-0.7); Eosinophils % (A) 1 %; HCT 34.8 % (34.0-46.0); HGB 12.4 gm/dL (11.4-16.0); Lymphocytes # (A) 3.7 k/uL (1.0-4.8); Lymphocytes % (A) 25 %; MCH 33.2 pg (25.0-35.0); MCHC 35.6 g/dL (31.0-37.0); MCV 93.3 fL (80.0-100.0); Mean Platelet Volume 10.4; Monocytes # (A) 0.6 k/uL (0-1.0); Monocytes % (A) 4 %; Neutrophils % (A) 68 %; Platelet Count 285 k/uL (150-450); RBC 3.72 m/uL (3.80-5.40); RDW 13.5 % (11.5-15.5); WBC 14.7 k/uL (3.8-10.6)
[2021-06-07] MEDS ORDERED: fentaNYL (PF) 50 MCG/ML 5 ML AMP ONE (21:14)
[2021-06-07] MEDS ORDERED: SODIUM CHLORIDE 0.9% 100 ML BAG ONE (21:14)
[2021-06-07] MEDS ORDERED: ROPIVACAINE 5MG/ML 20ML VIAL ONE (21:14)
--- NOTE | 2021-06-07 22:07 | P.HPOB ---
History of Present Illness H&P Date: 06/07/21 Chief Complaint: SROM 36 year old presents at 37 weeks 6 days with SROM at 1800. Her cervix is 4/80/-2 and she is jody irregularly. heart tones 140 with moderate variability and reactive. Review of Systems All systems: negative Constitutional: Denies chills, Denies fever Eyes: denies blurred vision, denies pain Ears, nose, mouth and throat: Denies headache, Denies sore throat Cardiovascular: Denies chest pain, Denies shortness of breath Respiratory: Denies cough Gastrointestinal: Denies abdominal pain, Denies diarrhea, Denies nausea, Denies vomiting Genitourinary: Denies dysuria, Denies hematuria Musculoskeletal: Denies myalgias Integumentary: Denies pruritus, Denies rash Neurological: Denies numbness, Denies weakness Psychiatric: Denies anxiety, Denies depression Endocrine: Denies fatigue, Denies weight change Past Medical History Past Medical History: No Reported History Additional Past Medical History / Comment(s): Obstetric history: first was a vaginal delivery.This is her second and she has been getting care with Dr Swain. A+, abs neg, Rub nonimmune, RPR NR, Hep B neg, HIV NR, toxo neg. normal 1hr GTT and anatomy US. History of Any Multi-Drug Resistant Organisms: None Reported Past Surgical History: Ear Surgery Additional Past Surgical History / Comment(s): myringotomy with tubes Past Anesthesia/Blood Transfusion Reactions: No Reported Reaction Past Psychological History: No Psychological Hx Reported Smoking Status: Current every day smoker Past Alcohol Use History: None Reported Past Drug Use History: None Reported Medications and Allergies Allergies Allergy/AdvReac Type Severity Reaction Status Date / Time No Known Allergies Allergy Verified 06/07/21 19:12 Exam Osteopathic Statement: *. No significant issues noted on an osteopathic structural exam other than those noted in the History and Physical/Consult. Vital Signs Temp Pulse Resp BP Pulse Ox 06/07/21 19:28 96.7 F L 102 H 16 121/76 100 06/07/21 18:57 96.7 F L 102 H 16 121/76 100 Intake and Output 06/07/21 06/07/21 06/07/21 06:59 14:59 22:59 Other: Weight 95.708 kg Heart: Regular rate and rhythm Lungs: Clear to auscultation bilaterally Abdomen: Soft, nontender Extremities: Negative Homans sign Results Result Diagrams: 06/07/21 19:39 Abnormal Lab Results - Last 24 Hours (Table) 06/07/21 Range/Units 19:39 WBC 14.7 H (3.8-10.6) k/uL RBC 3.72 L (3.80-5.40) m/uL Neutrophils # 10.0 H (1.3-7.7) k/uL Assessment and Plan (1) Spontaneous rupture of membranes Current Visit: No Status: Acute Code(s): [id number] - SNOMED Code(s): 144174165 (2) Normal labor Current Visit: No Status: Acute Code(s): O80 - ENCOUNTER FOR FULL-TERM UNCOMPLICATED DELIVERY SNOMED Code(s): 48137865 Plan: 1. Admit to family place 2. Anticipate normal vaginal delivery
[2021-06-07] MEDS ORDERED: BENZOCAINE/MENTHOL SPRAY 1 GM/SPRAY AEROSOL TOPICAL PRN (22:58)
[2021-06-07] MEDS ORDERED: diphenhydrAMINE 50 MG/ML 1 ML VIAL IVP PRN ×2 (22:58)
[2021-06-07] MEDS ORDERED: LANOLIN CREAM 5 GM TUBE TOPICAL PRN (22:58)
[2021-06-07] MEDS ORDERED: SIMETHICONE 80 MG CHEWABLE PO PRN (22:58)
[2021-06-07] MEDS ORDERED: diphenhydrAMINE 50 MG CAP PO PRN (22:58)
[2021-06-07] MEDS ORDERED: HYDROCORTISONE 2.5% RECTAL CREAM 30 GM TUBE RECTAL PRN (22:58)
[2021-06-07] MEDS ORDERED: diphenhydrAMINE 25 MG CAP PO PRN (22:58)
[2021-06-07] MEDS ORDERED: ZOLPIDEM 5 MG TAB PO PRN (22:58)
--- NOTE | 2021-06-07 22:58 | P.PROBDLV ---
Vaginal Delivery Note - . Vaginal Delivery Note: 36 year old presents at 37 weeks 6 days with SROM at 1800. Her cervix is 4/80/-2 and she is jody irregularly. heart tones 140 with moderate variability and reactive. she was admitted to [facility] given epidural soon after. Her cervix was completely dilated at 2209. She pushed, with viable female infant over intact perineum under epidural anesthesia at 2217. Head delivered OA she pushed through the nuchal cord and anterior shoulder delivered gentle downward guidance followed by posterior shoulder and rest of body. Nose and mouth bulb suctioned, cord clamped and cut, infant placed on mother's abdomen. Apgars 9, 10, weight 6 pounds 4.5 ounces. Placenta delivered spontaneous, intact with three-vessel cord at 2219. Vagina, cervix, perineum inspected. First-degree bilateral laceration was repaired with 3-0 Vicryl. Estimated blood loss 200 mL. Mother and baby in stable condition.
[2021-06-08] MEDS: IBUPROFEN 600 MG TAB PO PRN ×2 (05:48→15:12)
[2021-06-08 07:45] LABS: Basophils # (A) 0.1 k/uL (0-0.2); Basophils % (A) 0 %; Eosinophils # (A) 0.2 k/uL (0-0.7); Eosinophils % (A) 1 %; HCT 31.6 % (34.0-46.0); HGB 10.7 gm/dL (11.4-16.0); Lymphocytes % (A) 21 %; MCHC 33.8 g/dL (31.0-37.0); MCV 94.7 fL (80.0-100.0); Mean Platelet Volume 10.7; Monocytes # (A) 0.8 k/uL (0-1.0); Monocytes % (A) 6 %; Neutrophils # (A) 10.1 k/uL (1.3-7.7); Neutrophils % (A) 71 %; Platelet Count 241 k/uL (150-450); RBC 3.34 m/uL (3.80-5.40); RDW 13.6 % (11.5-15.5); WBC 14.2 k/uL (3.8-10.6)
[2021-06-08] MEDS: SENNOSIDES-DOCUSATE SODIUM 1 EACH TAB PO SCH ×2 (08:40→22:26)
[2021-06-08] MEDS: ACETAMINOPHEN TAB 325 MG TAB PO PRN ×3 (08:49→22:26)
[2021-06-08] MEDS ORDERED: MEASLES-MUMPS-RUBELLA VACC/PF 12,500 UNIT/0.5 ML VIAL SQ ONE (18:22)
[2021-06-09] MEDS: IBUPROFEN 600 MG TAB PO PRN (05:55)
[2021-06-09] MEDS: SENNOSIDES-DOCUSATE SODIUM 1 EACH TAB PO SCH (07:21)
[2021-06-09] MEDS: ACETAMINOPHEN TAB 325 MG TAB PO PRN (07:21)
[2021-06-09 07:27] VITALS: BP 111/76; PULSE 64; RESP 17; TEMP 97.8
== END 2021-06-09 10:55 | disposition home or self-care (01) | DRG 807 ==
LOC: FBPOP 18:49 → 4FBP 19:20
PROVIDERS: ADMIT Obstetrics & Gynecology; ATTEND Obstetrics & Gynecology
PROC: 10E0XZZ Delivery of Products of Conception, External Approach (ICD-10-PCS; principal; 2021-06-07)
PROC: 0UQMXZZ Repair Vulva, External Approach (ICD-10-PCS; 2021-06-07)
PROC: 4A0HXCZ Measurement of Products of Conception, Cardiac Rate, External Approach (ICD-10-PCS; 2021-06-07)
DX: O69.81X0 Labor and delivery complicated by cord around neck, without compression, not applicable or unspecified (principal); Z37.0 Single live birth; O71.82 Other specified trauma to perineum and vulva; O99.334 Smoking (tobacco) complicating childbirth; Z3A.37 37 weeks gestation of pregnancy
CPT/HCPCS: 59025; 84112; 85025; 86850; 86900; 86901; 99213